=== PATIENT | female | born 1990 | race Caucasian/White ===

== ENCOUNTER 2016-10-24 20:40 | Emergency (ER) ==
[2016-10-24 20:53] VITALS: BP 124/78; TEMP 99.8; BMI 32.5
[2016-10-24 21:16] LABS: FLU INTERNAL QC INTERNAL QC VALID; RAPID FLU A NEGATIVE (NEGATIVE); RAPID FLU B NEGATIVE (NEGATIVE)
[2016-10-24] MEDS ORDERED: DUONEB NEB STA (21:30)
[2016-10-24] MEDS ORDERED: TORADOL IM STA (21:30)
--- NOTE | 2016-10-24 21:35 | ED.PDOC ---
General ED Provider: Dr. DM YARBROUGH Chief Complaint: Shortness of Air Stated Complaint: Patient complaints of one day history of Nasal drainage, cough , shortness of breath. Admits to smoking 1/2 ppd. Time Seen by Physician: 21:31 Mode of Arrival: Walk-In Information Source: Patient Primary Care Provider: ZENA MANCILLA Nursing and Triage Documentation Reviewed and Agree: Yes Review of Systems - Review Of Systems Constitutional: Reports: Fever Eyes: Reports: No symptoms Ears, Nose, Mouth, Throat: Reports: Nose discharge Respiratory: Reports: Cough, Short of air Cardiac: Reports: No symptoms GI: Reports: No symptoms : Reports: No symptoms Musculoskeletal: Reports: No symptoms Skin: Reports: No symptoms Neurological: Reports: No symptoms Endocrine: Reports: No symptoms Hematologic/Lymphatic: Reports: No symptoms All Other Systems: Reviewed and Negative Past Medical History - Past Medical History Endocrine: Reports: None Cardiovascular: Reports: None Respiratory: Reports: None Hematological: Reports: None Gastrointestinal: Reports: None Genitourinary: Reports: None Neuro/Psych: Reports: None Musculoskeletal: Reports: None Cancer: Reports: None Last Menstrual Period: 10/13/15 Other Pertinent Past Medical History: 2 C-SECTIONS, GALLBLADDER, TONSILS, ERCP - Surgical History General Surgical History: Reports: (x2), Cholecystectomy (ERCP), Tonsillectomy - Family History Family History: Reports: Unknown (no one else illl) - Social History Smoking Status: Current every day smoker, Light tobacco smoker Hx Substance Use: No Alcohol Screening: None - Immunizations Tetanus Shot up to Date: Yes Physical Exam - Physical Exam Appearance: Ill-appearing Ill-appearing: Moderate Pain Distress: Moderate Eyes: YVETTE, EOMI, Conjunctiva clear ENT: Ears normal, Nose normal, Oropharynx normal Neck: Supple Respiratory: Wheezes (mild scattared ) Cardiovascular: Tachycardia GI/: Soft Musculoskeletal: Normal strength Skin: Warm, Dry, Normal color Neurological: Sensation intact, Motor intact, Reflexes intact, Cranial nerves intact, Alert, Oriented Psychiatric: Affect appropriate Interpretation - Radiology Interpretation Radiology Interpretation By: ED Physician Radiology Results: Negative Exam Interpreted: CXR Re-Evaluation - Re-Evaluation Time of Re-Evaluation: 22:33 Status: Improved Vital Signs Stable: Yes Additional Comments: Breathing better. Critical Care Note - Critical Care Note Total Time (mins): 0 Course - Course Orders, Labs, Meds: Lab Review 10/24/16 20:55 Influenza A (Rapid) Negative Influenza B (Rapid) Negative Orders Category Date Time Status NEBULIZER TREATMENT Stat CARDIO 10/24/16 21:30 Completed MOLECULAR GROUP A STREP Stat LAB 10/24/16 20:55 Results RAPID FLU A/B Stat LAB 10/24/16 20:55 Completed RAPID STREP SCREEN [STREP SCREEN] Stat LAB 10/24/16 20:55 Results Ipratropium/Albuterol Neb [Duoneb] MEDS 10/24/16 21:30 Discontinued 1 vial NEB ONCE STA Ketorolac Tromethamine [Toradol] MEDS 10/24/16 21:30 Discontinued 60 mg IM ONCE STA CHEST, 2 VIEWS PA & LAT Stat RADS 10/24/16 22:23 Taken Medications Discontinued Medications Generic Name Dose Route Start Last Admin Trade Name Freq PRN Reason Stop Dose Admin Albuterol/Ipratropium 1 vial 10/24/16 21:30 10/24/16 22:14 Duoneb NEB 10/24/16 21:31 1 vial ONCE STA Administration Ketorolac Tromethamine 60 mg 10/24/16 21:30 10/24/16 21:57 Toradol IM 10/24/16 21:31 60 mg ONCE STA Administration Vital Signs: Temp Pulse Resp BP Pulse Ox 10/24/16 20:40 99.8 F H 106 H 22 124/78 98 Departure - Departure Time of Disposition: 22:33 Disposition: HOME SELF-CARE Discharge Problem: Viral URI with cough, Bronchitis Instructions: Viral Syndrome (ED), Acute Bronchitis (ED) Condition: Fair Pt referred to PMD for follow-up: Yes Additional Instructions: Push fludis Quit smoking Take medication as prescribed Prescriptions: Albuterol Sulfate [Proair Hfa] 2 puff IH Q6H PRN #1 puff PRN Reason: shortness of breath Azithromycin [Zithromax] 250 mg PO DIRECTED #6 tablet Methylprednisolone [Medrol Dosepak] 4 mg PO DIRECTED #1 pkg Allergies/Adverse Reactions: Allergies No Known Allergies Allergy (Verified 10/24/16 20:47) Home Medications: Ambulatory Orders Albuterol Sulfate [Proair Hfa] 2 puff IH Q6H PRN #1 puff 10/24/16 Azithromycin [Zithromax] 250 mg PO DIRECTED #6 tablet 10/24/16 Methylprednisolone [Medrol Dosepak] 4 mg PO DIRECTED #1 pkg 10/24/16 Disposition Discussed With: Patient
--- NOTE | 2016-10-25 07:34 | DI ---
EXAM: CHEST FRONTAL AND LATERAL VIEWS HISTORY: Cough. COMPARISON: 05/09/2016 FINDINGS: Heart size and mediastinal contour remain within normal limits. There is a discoid dens ity in the right lung base probably unchanged since prior study given differences in patient positio alexey. This may represent prominent pulmonary vessel possibly related to a pulmonary vascular malfor mation. Exact etiology and clinical significance is uncertain. No definite consolidated pneumonia. There is no vascular congestion, pneumothorax or pleural fluid. IMPRESSION: Discoid opacity in the right lung base as described. No consolidated pneumonia identifi ed.
== END 2016-10-24 22:45 | disposition home or self-care (01) ==
LOC: ED 20:40
DX: J20.9 Acute bronchitis, unspecified (principal); J06.9 Acute upper respiratory infection, unspecified; B34.9 Viral infection, unspecified; F17.210 Nicotine dependence, cigarettes, uncomplicated
CPT/HCPCS: 87651; 87804; 87880; 94640; 96372; 99283

== ENCOUNTER 2016-11-14 08:59 | Outpatient (CLI) ==
[2016-11-14 09:32] LABS: BASOPHILS % (AUTO) 0.2 % (0.0-3.0); EOSINOPHILS # (AUTO) 0.1 K/ul (0.0-0.7); EOSINOPHILS % (AUTO) 1.6 % (0.0-7.0); HEMATOCRIT 34.3 % (37.0-47.0); HEMOGLOBIN 11.9 g/dl (12.0-16.0); IMMATURE GRANULOCYTE % (AUTO) 0.1 % (0.0-5.0); LYMPHOCYTES # (AUTO) 2.3 K/uL (0.60-3.4); LYMPHOCYTES % (AUTO) 26.3 (10.0-50.0); MEAN CORPUSCULAR HGB CONC 34.7 (31.8-35.4); MEAN CORPUSCULAR VOLUME 89.3 fl (81.0-99.0); MONOCYTES # (AUTO) 0.4 K/uL (0.4-2.0); MONOCYTES % (AUTO) 4.7 (0-10); NEUTROPHILS # (AUTO) 5.8 K/ul (2.0-6.9); NEUTROPHILS % (AUTO) 67.1; PLATELET COUNT 213 10^3/uL (140-440); RED BLOOD COUNT 3.84 10^6/ul (4.20-5.40); WHITE BLOOD COUNT 8.67 K/ul (4.6-10.2)
[2016-11-14 10:08] LABS: ALBUMIN 3.3 g/dL (3.4-5.0); ALBUMIN/GLOBULIN RATIO 1.1; ANION GAP 10.8; BILIRUBIN,TOTAL 0.48 mg/dL (0.00-1.20); BUN/CREATININE RATIO 11.76; CALCIUM 8.8 mg/dL (8.2-10.2); CHOL/HDL RATIO 4.9 (4.5-5.5); CREATININE 0.68 mg/dL (0.60-1.30); POTASSIUM 3.8 mmol/L (3.5-5.10); TOTAL PROTEIN 6.3 g/dL (6.4-8.2)
== END 2016-11-14 09:00 | disposition home or self-care (01) ==
LOC: LAB 08:59
PROVIDERS: ATTEND Nurse Practitioner Family
DX: Z00.00 Encounter for general adult medical examination without abnormal findings (principal); Z72.0 Tobacco use
CPT/HCPCS: 36415; 80053; 80061; 84443; 85025

== ENCOUNTER 2016-11-14 09:42 | Emergency (ER) ==
[2016-11-14 09:54] VITALS: BP 107/71; TEMP 98.4; BMI 33.2
--- NOTE | 2016-11-14 10:51 | ED.PDOC ---
General ED Provider: Dr. EDDIE MCCALL Chief Complaint: Rash Stated Complaint: Rash; insect bites possible, incl bed bugs or fleas Time Seen by Physician: 10:35 Mode of Arrival: Walk-In Information Source: Patient Primary Care Provider: ZULMA [facility] Nursing and Triage Documentation Reviewed and Agree: Yes Review of Systems - Review Of Systems Constitutional: Reports: No symptoms Skin: Reports: Rash (multiple small garcia (bite garcia) on arms, R lower side) All Other Systems: Reviewed and Negative Past Medical History - Past Medical History Endocrine: Reports: None Cardiovascular: Reports: None Respiratory: Reports: None Hematological: Reports: None Gastrointestinal: Reports: None Genitourinary: Reports: None Neuro/Psych: Reports: None Musculoskeletal: Reports: None Cancer: Reports: None Last Menstrual Period: 10/13/16 Other Pertinent Past Medical History: 2 C-SECTIONS, GALLBLADDER, TONSILS, ERCP - Surgical History General Surgical History: Reports: (x2), Cholecystectomy (ERCP), Tonsillectomy - Family History Family History: Reports: Unknown (no one else illl) - Social History Smoking Status: Current every day smoker, Light tobacco smoker Hx Substance Use: No Alcohol Screening: None Physical Exam - Physical Exam Appearance: Well-appearing Skin: Warm, Dry, Normal color (Except for punctate lesions some with surrounding erythema 2 to 3 mm) Neurological: Sensation intact, Alert, Oriented Psychiatric: Affect appropriate, Mood appropriate Critical Care Note - Critical Care Note Total Time (mins): 10 Course - Course Vital Signs: Temp Pulse Resp BP Pulse Ox 11/14/16 09:51 98.4 F 79 20 107/71 96 Departure - Departure Time of Disposition: 10:51 Disposition: HOME SELF-CARE Discharge Problem: Rash and other nonspecific skin eruption Instructions: Acute Rash (ED) Condition: Good Pt referred to PMD for follow-up: Yes (Call for appointment) Additional Instructions: Followup with primary care; call for appointment. Prescriptions: Diphenhydramine HCl [Benadryl] 25 mg PO Q6H #30 capsule Prednisone 20 mg PO DAILYWM #14 tablet Allergies/Adverse Reactions: Allergies No Known Allergies Allergy (Verified 11/14/16 09:54) Home Medications: Ambulatory Orders Albuterol Sulfate [Proair Hfa] 2 puff IH Q6H PRN #1 puff 02/15/17 Diphenhydramine HCl [Benadryl] 25 mg PO Q6H #30 capsule 11/14/16 Prednisone 20 mg PO DAILYWM #14 tablet 11/14/16 Disposition Discussed With: Patient
== END 2016-11-14 11:17 | disposition home or self-care (01) ==
LOC: ED 09:42
DX: R21 Rash and other nonspecific skin eruption (principal); Z00.00 Encounter for general adult medical examination without abnormal findings; Z72.0 Tobacco use
CPT/HCPCS: 36415; 80053; 80061; 84443; 85025; 99282

== ENCOUNTER 2016-12-08 18:53 | Emergency (ER) ==
[2016-12-08 18:58] VITALS: BP 133/84; TEMP 101.8; BMI 33.5
[2016-12-08 19:21] LABS: BASOPHILS % (AUTO) 0.3 % (0.0-3.0); EOSINOPHILS % (AUTO) 0.6 % (0.0-7.0); HEMATOCRIT 35.5 % (37.0-47.0); HEMOGLOBIN 12.1 g/dl (12.0-16.0); IMMATURE GRANULOCYTE % (AUTO) 0.3 % (0.0-5.0); LYMPHOCYTES # (AUTO) 1.3 K/uL (0.60-3.4); LYMPHOCYTES % (AUTO) 18.7 (10.0-50.0); MEAN CORPUSCULAR HEMOGLOBIN 30.6 pg (27.0-31.0); MEAN CORPUSCULAR HGB CONC 34.1 (31.8-35.4); MEAN CORPUSCULAR VOLUME 89.6 fl (81.0-99.0); MONOCYTES # (AUTO) 0.3 K/uL (0.4-2.0); MONOCYTES % (AUTO) 4.6 (0-10); NEUTROPHILS # (AUTO) 5.3 K/ul (2.0-6.9); NEUTROPHILS % (AUTO) 75.5; PLATELET COUNT 202 10^3/uL (140-440); RED BLOOD COUNT 3.96 10^6/ul (4.20-5.40); WHITE BLOOD COUNT 6.95 K/ul (4.6-10.2)
[2016-12-08 19:37] LABS: FLU INTERNAL QC INTERNAL QC VALID; RAPID FLU A NEGATIVE (NEGATIVE); RAPID FLU B POSITIVE (NEGATIVE)
[2016-12-08 19:41] LABS: ALBUMIN 3.4 g/dL (3.4-5.0); ALBUMIN/GLOBULIN RATIO 1.03; ANION GAP 12.8; BILIRUBIN,TOTAL 0.23 mg/dL (0.00-1.20); BUN/CREATININE RATIO 8.57; CALCIUM 8.3 mg/dL (8.2-10.2); CREATININE 0.7 mg/dL (0.60-1.30); POTASSIUM 2.8 mmol/L (3.5-5.10); TOTAL PROTEIN 6.7 g/dL (6.4-8.2)
[2016-12-08] MEDS ORDERED: K-DUR PO STA (19:48)
[2016-12-08] MEDS ORDERED: MOTRIN SUSP PO STA (19:58)
[2016-12-08] MEDS ORDERED: AUGMENTIN 875-125 MG TAB PO STA (19:58)
[2016-12-08] MEDS ORDERED: TAMIFLU PO SCH (20:00)
[2016-12-08] MEDS ORDERED: TAMIFLU PO STA (20:02)
--- NOTE | 2016-12-08 20:02 | ED.PDOC ---
General ED Provider: Dr. STANLEY FLETCHER-ER Chief Complaint: Respiratory Complaint Stated Complaint: im coughing up stuff for 2 days Time Seen by Physician: 19:00 Mode of Arrival: Walk-In Information Source: Patient Exam Limitations: No limitations [facility] and T[facility] Documentation Reviewed and Agree: Yes Respiratory Complaint Exam - Respiratory Complaint/Exam Onset/Duration: 48hrs Symptoms Are: Still present Timing: Intermittent Initial Severity: Mild Current Severity: Moderate Location: Chest Character: Reports: Productive cough Aggravating: Reports: URI Alleviating: Reports: None Associated Signs and Symptoms: Reports: Fever, Chills, URI, Nasal congestion, Sore throat. Denies: Rapid breathing, Dyspnea, Chest pain, Pleuritic chest pain , Wheezing, Hemoptysis, Dizziness, Calf pain, Calf swelling, Edema, Hoarseness, Sinus discomfort, Vomiting, Weight loss, Decreased oral intake, Increased thirst , Increased appetite, Increased urination Related Surgical History: Reports: None Pulmonary Embolism Risk Factors: Smoking Cardiac Risk Factors: Reports: Smoking Tuberculosis Risk Factors: Reports: None Status Asthmaticus Risk Factors: Reports: None Home Oxygen Use: No Recent Stress Test: No Recent Echo/LV Function: No Current Antibiotic Use: No Current Asthma Medication Use: No Respiratory Distress: None Inadequate Respiratory Effort: No Dysphagia Present: No JVD Present: No Retractions: Not Present Diminished Breath Sounds: No Sinus Tenderness: None Grunting Respirations: No Kussmaul Respirations: No Differential Diagnoses: Pneumonia, Sinusitis, Influenza Review of Systems - Review Of Systems Constitutional: Reports: Chills, Fever Eyes: Reports: No symptoms Ears, Nose, Mouth, Throat: Reports: Nose discharge Respiratory: Reports: Cough Cardiac: Reports: No symptoms GI: Reports: No symptoms : Reports: No symptoms Musculoskeletal: Reports: No symptoms Skin: Reports: No symptoms Neurological: Reports: No symptoms Endocrine: Reports: No symptoms Hematologic/Lymphatic: Reports: No symptoms All Other Systems: Reviewed and Negative Past Medical History - Past Medical History Endocrine: Reports: None Cardiovascular: Reports: None Respiratory: Reports: None Hematological: Reports: None Gastrointestinal: Reports: None Genitourinary: Reports: None Neuro/Psych: Reports: None Musculoskeletal: Reports: None Cancer: Reports: None Last Menstrual Period: november 18 Other Pertinent Past Medical History: 2 C-SECTIONS, GALLBLADDER, TONSILS, ERCP - Surgical History General Surgical History: Reports: (x2), Cholecystectomy (ERCP), Tonsillectomy - Family History Family History: Reports: Unknown (no one else illl) - Social History Smoking Status: Current every day smoker, Light tobacco smoker Hx Substance Use: No Alcohol Screening: None Lives: With family Physical Exam - Physical Exam Appearance: Well-appearing, No pain distress, Well-nourished Eyes: YVETTE, EOMI, Conjunctiva clear ENT: Rhinorrhea Neck: Supple Respiratory: Rhonchi Cardiovascular: RRR, Pulses normal, No rub, No murmur GI/: Soft Musculoskeletal: Normal strength, ROM intact, No edema, No calf tenderness Skin: Warm, Dry, Normal color Neurological: Sensation intact, Motor intact, Reflexes intact, Cranial nerves intact, Alert, Oriented Psychiatric: Affect appropriate, Mood appropriate Interpretation - Radiology Interpretation Radiology Interpretation By: Radiologist Radiology Results: Negative Exam Interpreted: CXR Critical Care Note - Critical Care Note Total Time (mins): 0 Course - Course Hematology/Chemistry: 12/08/16 19:15 12/08/16 19:15 Orders, Labs, Meds: Lab Review 12/08/16 12/08/16 19:03 19:15 WBC 6.95 RBC 3.96 L Hgb 12.1 Hct 35.5 L MCV 89.6 MCH 30.6 MCHC 34.1 RDW Coeff of Khushboo 12.5 Plt Count 202 Immature Gran % (Auto) 0.3 Neut % (Auto) 75.5 Lymph % (Auto) 18.7 [place] % (Auto) 4.6 Eos % (Auto) 0.6 Baso % (Auto) 0.3 Immature Gran # (Auto) 0.0 Neut # 5.3 Lymph # 1.3 [place] # 0.3 L Eos # 0.0 Baso # 0.0 Sodium 140 Potassium 2.8 L Chloride 107 Carbon Dioxide 23 Anion Gap 12.8 BUN 6 L Creatinine 0.70 Estimated GFR (MDRD) 100.00 BUN/Creatinine Ratio 8.57 Glucose 112 H Lactic Acid 13.4 Calcium 8.3 Total Bilirubin 0.23 AST 26 ALT 33 Alkaline Phosphatase 95 Total Protein 6.7 Albumin 3.4 Globulin 3.3 Albumin/Globulin Ratio 1.03 Procalcitonin < 0.05 Influenza A (Rapid) Negative Influenza B (Rapid) Positive H Orders Category Date Time Status BLOOD CULTURE Stat LAB 12/08/16 19:15 Received CBC W/ AUTO DIFF Stat LAB 12/08/16 19:15 Completed COMPREHENSIVE METABOLIC PANEL Stat LAB 12/08/16 19:15 Completed LACTIC ACID Stat LAB 12/08/16 19:15 Completed MOLECULAR GROUP A STREP Stat LAB 12/08/16 19:03 Results PROCALCITONIN Stat LAB 12/08/16 19:15 Completed RAPID FLU A/B Stat LAB 12/08/16 19:03 Completed STREP SCREEN Stat LAB 12/08/16 19:03 Results Amoxicillin/Potassium Clav [Augmentin 875-125 mg Tab] MEDS 12/08/16 19:58 Discontinued 1 tab PO ONCE STA Ibuprofen Susp [Motrin Susp] MEDS 12/08/16 19:58 Discontinued 800 mg PO ONCE STA Oseltamivir Phosphate [Tamiflu] MEDS 12/08/16 20:00 Discontinued 75 mg PO ONCE Oseltamivir Phosphate [Tamiflu] MEDS 12/08/16 20:02 Stat 75 mg PO ONCE STA Potassium Chloride [K-Dur] MEDS 12/08/16 19:48 Discontinued 40 meq PO ONCE STA CXR [CHEST, 2 VIEWS PA & LAT] Stat RADS 12/08/16 19:04 Taken Medications Discontinued Medications Generic Name Dose Route Start Last Admin Trade Name Freq PRN Reason Stop Dose Admin Amoxicillin/Clavulanate Potassium 1 tab 12/08/16 19:58 Augmentin 875-125 Mg Tab PO 12/08/16 19:59 ONCE STA Ibuprofen 800 mg 12/08/16 19:58 Motrin Susp PO 12/08/16 19:59 ONCE STA Oseltamivir Phosphate 75 mg 12/08/16 20:00 Tamiflu PO ONCE HANH Oseltamivir Phosphate 75 mg 12/08/16 20:02 Tamiflu PO 12/08/16 20:03 ONCE STA Potassium Chloride 40 meq 12/08/16 19:48 12/08/16 19:53 K-Dur PO 12/08/16 19:49 40 meq ONCE STA Administration Vital Signs: Temp Pulse Resp BP Pulse Ox 12/08/16 19:56 101.8 F H 12/08/16 18:53 101.8 F H 103 H 20 133/84 96 Departure - Departure Time of Disposition: 20:05 Disposition: HOME SELF-CARE Discharge Problem: Influenza B Instructions: Influenza (ED) Condition: Good Pt referred to PMD for follow-up: Yes Additional Instructions: tamiflu 75mg bid x5 days--augmentin 875mg bid x 7days...fluids..rest..motrin for temp..recheck in 48hrs if not better--rcheck potassium with your pcp next week Allergies/Adverse Reactions: Allergies No Known Allergies Allergy (Verified 12/08/16 19:00) Home Medications: Ambulatory Orders 1 [No Reported Medications] 12/08/16 Disposition Discussed With: Patient
--- NOTE | 2016-12-08 21:18 | DI ---
EXAM: Two-view chest. HISTORY: Cough and fever. COMPARISON: None. FINDINGS: AP and lateral views of the chest. The lungs are clear without consolidation or effusion . The heart size and pulmonary vasculature is normal. There is no pneumothorax. The osseous struc tures are normal for age. The aorta is unremarkable. IMPRESSION: No acute pulmonary disease.
== END 2016-12-08 20:40 | disposition home or self-care (01) ==
LOC: ED 18:53
DX: J10.1 Influenza due to other identified influenza virus with other respiratory manifestations (principal); F17.210 Nicotine dependence, cigarettes, uncomplicated
CPT/HCPCS: 36415; 80053; 83605; 84145; 85025; 87040; 87651; 87804; 87880; 99284

== ENCOUNTER 2017-03-27 16:32 | Outpatient (CLI) ==
--- NOTE | 2017-03-28 08:08 | DI ---
EXAM: Five views of the lumbar spine. History: Lower back pain. Findings: No acute fracture or subluxation. Disc space heights are preserved. Cholecystectomy cli ps. Scattered colonic stool. Impression: Unremarkable exam.
== END 2017-03-27 16:33 | disposition home or self-care (01) ==
LOC: RAD 16:32
PROVIDERS: ATTEND Nurse Practitioner Family
DX: M53.3 Sacrococcygeal disorders, not elsewhere classified (principal)

== ENCOUNTER 2017-05-14 21:55 | Emergency (ER) ==
[2017-05-14 22:04] VITALS: BP 121/78; TEMP 99.2; BMI 33.8
[2017-05-14] MEDS ORDERED: PREDNISONE PO STA (22:21)
[2017-05-14] MEDS ORDERED: CLARITIN PO STA (22:21)
--- NOTE | 2017-05-14 22:21 | ED.PDOC ---
General ED Provider: Dr. DM YARBROUGH Chief Complaint: Sore Throat Stated Complaint: pateint is a 27 year old female who comes to the ER with complains of headache, chills, sore throat, running nose body ache and non productive cough. Time Seen by Physician: 22:19 Mode of Arrival: Walk-In Information Source: Patient Exam Limitations: No limitations [facility] T[facility] Documentation Reviewed and Agree: Yes EENT Complaint Exam - Throat Complaint/Exam Onset/Duration: 1 day Symptoms Are: Still present Timimg: Constant Associated Signs and Symptoms: Reports: Dysphagia, Cough Related History: Reports: Similar Episode Uvula Midline: No Marlyn-tonsillar Fluctuence: No Scarlatinaform Rash Present: No Stridor Present: No Sinus Tenderness Present: No Tonsillar Hypertrophy Present: No Tonsillar Exudate Present: No Marlyn-tonsillar Swelling Present: No Adenopathy Present: No Splenomegaly Present: No Review of Systems - Review Of Systems Constitutional: Reports: Fever Eyes: Reports: No symptoms Ears, Nose, Mouth, Throat: Reports: Nose discharge, Throat pain Respiratory: Reports: Cough Cardiac: Reports: No symptoms GI: Reports: No symptoms : Reports: No symptoms Musculoskeletal: Reports: No symptoms Skin: Reports: No symptoms Neurological: Reports: Anxiety Endocrine: Reports: No symptoms Hematologic/Lymphatic: Reports: No symptoms All Other Systems: Reviewed and Negative Past Medical History - Past Medical History Endocrine: Reports: None Cardiovascular: Reports: None Respiratory: Reports: None Hematological: Reports: None Gastrointestinal: Reports: None Genitourinary: Reports: None Neuro/Psych: Reports: None Musculoskeletal: Reports: None Cancer: Reports: None Last Menstrual Period: 04/19-04/23 Other Pertinent Past Medical History: 2 C-SECTIONS, GALLBLADDER, TONSILS, ERCP - Surgical History General Surgical History: Reports: (x2), Cholecystectomy (ERCP), Tonsillectomy - Family History Family History: Reports: Unknown (no one else illl) - Social History Smoking Status: Current every day smoker, Heavy tobacco smoker Hx Substance Use: No Alcohol Screening: None - Immunizations Tetanus Shot up to Date: Yes Physical Exam - Physical Exam Appearance: Ill-appearing, Well-nourished, Obese Ill-appearing: Moderate Pain Distress: Mild Eyes: YVETTE, EOMI, Conjunctiva clear ENT: Ears normal, Nose normal, Oropharynx normal Neck: Supple Respiratory: Airway patent, Breath sounds diminished, Respirations nonlabored Cardiovascular: RRR, Pulses normal, No rub, No murmur GI/: Soft, Nontender, No masses, Bowel sounds normal, No Organomegaly Musculoskeletal: Normal strength, ROM intact, No edema, No calf tenderness Skin: Warm, Dry, Normal color Neurological: Sensation intact, Motor intact, Reflexes intact, Cranial nerves intact, Alert, Oriented Psychiatric: Affect appropriate, Mood appropriate Critical Care Note - Critical Care Note Total Time (mins): 0 Course - Course Orders, Labs, Meds: Orders Category Date Time Status STREP SCREEN Stat LAB 05/14/17 22:10 Received Vital Signs: Temp Pulse Resp BP Pulse Ox 05/14/17 21:55 99.2 F 88 20 121/78 95 Departure - Departure Time of Disposition: 22:25 Disposition: HOME SELF-CARE Discharge Problem: Sore throat symptom, Allergic rhinitis, Viral URI with cough Instructions: Allergic Rhinitis (ED), Pharyngitis (ED) Condition: Fair Pt referred to PMD for follow-up: Yes Additional Instructions: Push fluids Follow up with PCP in 3 days take medications as prescribed Start taking Your home prednisone 10 mg daily for 3 days Start Taking Zithromax if symptoms not better in 3 days or we call you with a positive strep. Prescriptions: Azithromycin [Zithromax] 250 mg PO DIRECTED #6 tablet Allergies/Adverse Reactions: Allergies No Known Allergies Allergy (Verified 05/14/17 22:03) Home Medications: Ambulatory Orders Montelukast Sodium [Singulair] 10 mg PO DAILY PRN 03/27/17 Naproxen [Naprosyn] 500 mg PO PRN PRN 03/27/17 Azithromycin [Zithromax] 250 mg PO DIRECTED #6 tablet 05/14/17 Ibuprofen 400 mg PO Q4H PRN 05/14/17
== END 2017-05-14 22:37 | disposition home or self-care (01) ==
LOC: ED 21:55
DX: J02.9 Acute pharyngitis, unspecified (principal); J06.9 Acute upper respiratory infection, unspecified; J30.9 Allergic rhinitis, unspecified; R05 Cough; F17.210 Nicotine dependence, cigarettes, uncomplicated
CPT/HCPCS: 87651; 87880; 99283

== ENCOUNTER 2017-08-06 13:43 | Outpatient (CLI) ==
[2017-08-06 13:52] LABS: FLU INTERNAL QC INTERNAL QC VALID; RAPID FLU A NEGATIVE (NEGATIVE); RAPID FLU B NEGATIVE (NEGATIVE)
== END 2017-08-06 13:44 | disposition home or self-care (01) ==
LOC: LAB 13:43
PROVIDERS: ATTEND Nurse Practitioner Family
DX: R05 Cough (principal)
CPT/HCPCS: 87651; 87804; 87880

== ENCOUNTER 2017-08-30 16:24 | Outpatient (CLI) ==
[2017-08-30 16:30] LABS: FLU INTERNAL QC INTERNAL QC VALID; MOLECULAR FLU A NEGATIVE (NEGATIVE); MOLECULAR FLU B NEGATIVE (NEGATIVE)
== END 2017-08-30 16:25 | disposition home or self-care (01) ==
LOC: LAB 16:24
PROVIDERS: ATTEND Nurse Practitioner Family
DX: J02.9 Acute pharyngitis, unspecified (principal); R68.89 Other general symptoms and signs
CPT/HCPCS: 87502; 87651; 87880

== ENCOUNTER 2017-09-30 20:02 | Emergency (ER) ==
[2017-09-30 20:09] VITALS: BP 155/90; TEMP 98.8; BMI 36.6
[2017-09-30] MEDS ORDERED: ROBITUSSIN AC SYRUP PO STA (20:40)
[2017-09-30] MEDS ORDERED: DECADRON 4 MG/ML SDV IM STA (20:40)
--- NOTE | 2017-09-30 20:44 | ED.PDOC ---
General ED Provider: Dr. ZULMA WHITTAKER Chief Complaint: Cough Stated Complaint: Coughing, congestion, hurting to breath. taking Amoxicillin for the sinus Infection. Time Seen by Physician: 20:42 Mode of Arrival: Walk-In Information Source: Patient Primary Care Provider: ZULMA WHITTAKER-[facility] Nursing and Triage Documentation Reviewed and Agree: Yes Reviewed sepsis parameters & appropriate labs ordered?: No System Inflammatory Response Syndrome: Not Applicable Sepsis Protocol: For patient's 13 years and over: Temp is 96.8 and below OR 101 and greater Pulse >90 BPM Resp >20/minute Acutely Altered Mental Status Are patient's symptoms suggestive of a new infection, such as: -Pneumonia -Skin, Soft Tissue -Endocarditis -UTI -Bone, Joint Infection -Implantable Device -Acute Abdominal Infection -Wound Infection -Meningitis -Blood Stream Catheter Infection -Unknown Respiratory Complaint Exam - Respiratory Complaint/Exam Symptoms Are: Still present Timing: Constant Initial Severity: Mild Current Severity: Mild Location: Nose, Chest Character: Reports: Productive cough Aggravating: Reports: URI Alleviating: Reports: None Associated Signs and Symptoms: Reports: URI, Nasal congestion, Hoarseness. Denies: Rapid breathing, Dyspnea, Fever, Chills, Chest pain, Pleuritic chest pain, Wheezing, Hemoptysis, Dizziness, Calf pain, Calf swelling, Edema, Sinus discomfort, Vomiting, Sore throat, Weight loss, Decreased oral intake, Increased thirst, Increased appetite, Increased urination Related History: Reports: Similar episode History of Healthcare-Acquired Pneumonia: No Related Surgical History: Reports: None Pulmonary Embolism Risk Factors: None Cardiac Risk Factors: Reports: None Pseudomonas Risk Factors: Reports: None Tuberculosis Risk Factors: Reports: None Status Asthmaticus Risk Factors: Reports: None Home Oxygen Use: No Recent Stress Test: No Recent Echo/LV Function: No Current Antibiotic Use: No Current Asthma Medication Use: No Respiratory Distress: Mild Inadequate Respiratory Effort: No Dysphagia Present: No Stridor Present: No JVD Present: No Accessory Muscle Use: No Retractions: Not Present Diminished Breath Sounds: No Prolonged Respiration: Inspiratory phase Sinus Tenderness: Frontal, Maxillary Grunting Respirations: No Kussmaul Respirations: No Differential Diagnoses: Pneumonia, Bronchitis Review of Systems - Review Of Systems Constitutional: Reports: No symptoms Eyes: Reports: No symptoms Ears, Nose, Mouth, Throat: Reports: Nose discharge Respiratory: Reports: Cough Cardiac: Reports: No symptoms GI: Reports: No symptoms : Reports: No symptoms Musculoskeletal: Reports: No symptoms Skin: Reports: No symptoms Neurological: Reports: No symptoms Endocrine: Reports: No symptoms Hematologic/Lymphatic: Reports: No symptoms All Other Systems: Reviewed and Negative Past Medical History - Past Medical History Previously Healthy: Yes Endocrine: Reports: None Cardiovascular: Reports: None Respiratory: Reports: None Hematological: Reports: None Gastrointestinal: Reports: None Genitourinary: Reports: None Neuro/Psych: Reports: None Musculoskeletal: Reports: None Cancer: Reports: None Last Menstrual Period: 09/21 Other Pertinent Past Medical History: 2 C-SECTIONS, GALLBLADDER, TONSILS, ERCP - Surgical History General Surgical History: Reports: (x2), Cholecystectomy (ERCP), Tonsillectomy - Family History Family History: Reports: Unknown (no one else illl) - Social History Smoking Status: Current some day smoker Hx Substance Use: No Alcohol Screening: None - Immunizations Tetanus Shot up to Date: Yes Physical Exam - Physical Exam Appearance: Well-appearing, No pain distress, Well-nourished Eyes: YVETTE, EOMI, Conjunctiva clear ENT: Ears normal, Nose normal, Oropharynx normal Respiratory: Airway patent, Breath sounds clear, Breath sounds equal, Respirations nonlabored Cardiovascular: RRR, Pulses normal, No rub, No murmur GI/: Soft, Nontender, No masses, Bowel sounds normal, No Organomegaly Musculoskeletal: Normal strength, ROM intact, No edema, No calf tenderness Skin: Warm, Dry, Normal color Neurological: Sensation intact, Motor intact, Reflexes intact, Cranial nerves intact, Alert, Oriented Psychiatric: Affect appropriate, Mood appropriate Critical Care Note - Critical Care Note Total Time (mins): 15 Course - Course Orders, Labs, Meds: Orders Category Date Time Status Dexamethasone 4 mg/ml Inj [Decadron 4 mg/ml Sdv] MEDS 09/30/17 20:40 Stat 4 mg IM ONCE STA Guaifenesin/Codeine Phosphate [Robitussin AC Syrup] MEDS 09/30/17 20:40 Stat 5 ml PO ONCE STA CHEST, 2 VIEWS PA & LAT Stat RADS 09/30/17 20:40 Ordered Medications Generic Name Dose Route Start Last Admin Trade Name Freq PRN Reason Stop Dose Admin Dexamethasone Sodium Phosphate 4 mg 09/30/17 20:40 Decadron 4 Mg/Ml Sdv IM 09/30/17 20:41 ONCE STA Guaifenesin/Codeine Phosphate 5 ml 09/30/17 20:40 Robitussin Ac Syrup PO 09/30/17 20:41 ONCE STA Vital Signs: Temp Pulse Resp BP Pulse Ox 09/30/17 20:03 98.8 F 93 H 16 155/90 H 94 L Departure - Departure Time of Disposition: 20:45 Disposition: HOME SELF-CARE Discharge Problem: URTI (acute upper respiratory infection), Pleurisy Instructions: Upper Respiratory Infection (ED) Condition: Stable Pt referred to PMD for follow-up: No IPMP verified?: No Additional Instructions: Take medication with food. Keep checking the BP F/u with [facility] if not better. Prescriptions: Guaifenesin/Dextromethorphan [Robitussin Cough-Chest Dm Liq] 10 ml PO TID #1 bottle Prednisone 10 mg PO BIDWM #14 tablet Allergies/Adverse Reactions: Allergies No Known Allergies Allergy (Verified 09/30/17 20:26) Home Medications: Ambulatory Orders Naproxen [Naprosyn] 500 mg PO PRN PRN 03/27/17 Ibuprofen 400 mg PO Q4H PRN 05/14/17 Tizanidine HCl 4 mg PO DAILY 09/26/17 Guaifenesin/Dextromethorphan [Robitussin Cough-Chest Dm Liq] 10 ml PO TID #1 bottle 09/30/17 Prednisone 10 mg PO BIDWM #14 tablet 09/30/17 Disposition Discussed With: Patient
--- NOTE | 2017-10-01 07:26 | DI ---
EXAM: PA and lateral views of the chest HISTORY: Cough. COMPARISON: Chest x-ray 12/08/2016 and multiple priors FINDINGS: The cardiomediastinal silhouette is normal. There is no pneumothorax or pleural effusion. There is no consolidation, nodule or mass. The osseous structures are unremarkable. IMPRESSION: No acute cardiopulmonary process
== END 2017-09-30 21:30 | disposition home or self-care (01) ==
LOC: ED 20:02
DX: J06.9 Acute upper respiratory infection, unspecified (principal); R09.1 Pleurisy; F17.210 Nicotine dependence, cigarettes, uncomplicated
CPT/HCPCS: 96372; 99282

== ENCOUNTER 2017-10-21 12:45 | Outpatient (CLI) | END 2017-10-21 12:46 | disposition home or self-care (01) | LOC: LAB 12:45 | PROVIDERS: ATTEND Nurse Practitioner Family | DX: J02.9 Acute pharyngitis, unspecified (principal); R51 Headache | CPT/HCPCS: 87502; 87651 ==

== ENCOUNTER 2017-12-26 19:56 | Emergency (ER) ==
[2017-12-26 20:01] VITALS: BP 126/85; TEMP 98.5; BMI 36.8
--- NOTE | 2017-12-26 21:54 | CT ---
EXAM: CT of the head without contrast. HISTORY: Fall. COMPARISON: None available. TECHNIQUE: Noncontrast CT of the head. FINDINGS: Streak artifacts mildly limit evaluation. No intracranial hemorrhage or mass effect is identified. T he sulci and ventricles are normal in size and configuration. The calvarium is intact. The visualized paranasal sinuses are unopacified. IMPRESSION: No evidence of an acute intracranial process.
--- NOTE | 2017-12-26 21:56 | CT ---
EXAM: CT of the lumbar spine without contrast History: Lower back trauma. Technique: Multiplanar CT images through the lumbar spine were obtained without the administration o f IV contrast Findings: No acute fracture or subluxation of the lumbar spine. Mild to moderate degenerative disc disease at L5-S1. Bony spinal canal is not compromised. Moderate left-sided bony neural foraminal na rrowing at L5-S1 secondary to ligamentous and facet hypertrophy. Impression: No acute osseous abnormality of the lumbar spine
--- NOTE | 2017-12-26 21:56 | CT ---
EXAM: Noncontrast CT of the cervical spine HISTORY: Fall COMPARISON: None available. TECHNIQUE: Noncontrast CT of the cervical spine FINDINGS: The cervical vertebral bodies are normal in height. No cervical spine fractures are seen. There is mild reversal of the normal cervical lordosis. There is 1 mm of anterolisthesis at C4-5. No signifi cant intervertebral disc height loss is seen. No abnormal prevertebral soft tissue swelling is seen. IMPRESSION: No evidence of acute osseous injury to the cervical spine. Mild reversal of the normal cervical lordosis.
--- NOTE | 2017-12-26 21:57 | DI ---
EXAM: Three views of the left shoulder. History: Left shoulder trauma. Findings: No acute fracture or dislocation. No abnormal calcifications or radiopaque foreign bodies . Joint spaces are preserved. Impression: No acute osseous abnormality
--- NOTE | 2017-12-26 21:58 | CT ---
EXAM: Noncontrast CT of the pelvis HISTORY: Fall COMPARISON: None available. TECHNIQUE: Noncontrast CT of the pelvis FINDINGS: No fracture or dislocation is identified. There is no significant joint space loss of the hips. The small fat-containing umbilical hernia and small fat-containing periumbilical hernia. No free pelvic fluid is seen. IMPRESSION: No acute osseous abnormality.
--- NOTE | 2017-12-26 23:00 | ED.PDOC ---
General ED Provider: Dr. STANLEY FLETCHER-ER Chief Complaint: Fall Stated Complaint: i fell in the shower last night Time Seen by Physician: 22:58 Mode of Arrival: Walk-In Information Source: Patient Exam Limitations: No limitations [facility] T[facility] Documentation Reviewed and Agree: Yes Reviewed sepsis parameters & appropriate labs ordered?: Yes System Inflammatory Response Syndrome: Not Applicable Sepsis Protocol: For patient's 13 years and over: Temp is 96.8 and below OR 101 and greater Pulse >90 BPM Resp >20/minute Acutely Altered Mental Status Are patient's symptoms suggestive of a new infection, such as: -Pneumonia -Skin, Soft Tissue -Endocarditis -UTI -Bone, Joint Infection -Implantable Device -Acute Abdominal Infection -Wound Infection -Meningitis -Blood Stream Catheter Infection -Unknown Musculoskeletal Complaint Exam - Back Pain Complaint/Exam Mechanism of Injury: Reports: Trauma Onset/Duration: 24 hrs Symptoms Are: Still present Timing: Constant Initial Severity: Mild Current Severity: Mild Character: Reports: Dull, Aching Aggravating: Reports: Movements, Lifting, Walking Alleviating: Reports: None Associated Signs and Symptoms: Denies: Swelling, Redness, Bruising, Fever, Weakness, Numbness, Tingling, Abdominal pain, Flank pain, Bladder incontinence, Bowel incontinence, Weight loss, Pain with weight bearing Focal Tenderness: Yes Paraspinal Muscle Tenderness: Yes Paraspinal Muscle Spasm: No Scoliosis: No Lordosis: No Kyphosis: No SLR Test: Right Negative, Left Negative Hip Motion Testing Pain: Right Negative, Left Negative Focal Weakness: Present: None Focal Sensory Loss: Present: None Gait: Present: Normal Differential Diagnoses: Strain, Sprain Review of Systems - Review Of Systems Constitutional: Reports: No symptoms Eyes: Reports: No symptoms Ears, Nose, Mouth, Throat: Reports: No symptoms Respiratory: Reports: No symptoms Cardiac: Reports: No symptoms GI: Reports: No symptoms : Reports: No symptoms Musculoskeletal: Reports: Back pain, Muscle pain Skin: Reports: No symptoms Neurological: Reports: No symptoms Endocrine: Reports: No symptoms Hematologic/Lymphatic: Reports: No symptoms All Other Systems: Reviewed and Negative Past Medical History - Past Medical History Previously Healthy: Yes Endocrine: Reports: None Cardiovascular: Reports: None Respiratory: Reports: None Hematological: Reports: None Gastrointestinal: Reports: None Genitourinary: Reports: None Neuro/Psych: Reports: None Musculoskeletal: Reports: None Cancer: Reports: None Last Menstrual Period: 3 WEEKS Other Pertinent Past Medical History: 2 C-SECTIONS, GALLBLADDER, TONSILS, ERCP - Surgical History General Surgical History: Reports: (x2), Cholecystectomy (ERCP), Tonsillectomy - Family History Family History: Reports: Unknown (no one else illl) - Social History Smoking Status: Current some day smoker Hx Substance Use: No Alcohol Screening: None - Immunizations Tetanus Shot up to Date: Yes Physical Exam - Physical Exam Appearance: Well-appearing, No pain distress, Well-nourished Pain Distress: Mild Eyes: YVETTE, EOMI, Conjunctiva clear ENT: Ears normal Neck: Supple Respiratory: Airway patent, Breath sounds clear, Breath sounds equal, Respirations nonlabored Cardiovascular: RRR, Pulses normal, No rub, No murmur GI/: Soft, Nontender, No masses, Bowel sounds normal, No Organomegaly Musculoskeletal: Normal strength, ROM intact, No edema, No calf tenderness Skin: Warm, Dry, Normal color Neurological: Sensation intact, Motor intact, Reflexes intact, Cranial nerves intact, Alert, Oriented Psychiatric: Affect appropriate, Mood appropriate Interpretation - Radiology Interpretation Radiology Interpretation By: Radiologist Radiology Results: Negative Exam Interpreted: CT Scan Critical Care Note - Critical Care Note Total Time (mins): 0 Course - Course Orders, Labs, Meds: Orders Category Date Time Status CT CERVICAL SPINE W/O CONTRAST Stat RADS 12/26/17 20:[address] HEAD W/O CONTRAST Stat RADS 12/26/17 20:[address] LUMBAR SPINE W/O CONTRAST Stat RADS 12/26/17 20:[address] PELVIS W/O CONTRAST Stat RADS 12/26/17 20:22 Completed SHOULDER, LEFT MIN 2V Stat RADS 12/26/17 20:23 Completed Vital Signs: Temp Pulse Resp BP Pulse Ox 12/26/17 19:56 98.5 F 92 H 16 126/85 97 Departure - Departure Time of Disposition: 23:00 Disposition: HOME SELF-CARE Discharge Problem: Contusion Qualifiers: Encounter type: initial encounter Contusion area: lower back Qualified Code(s) : S30.0XXA - Contusion of lower back and pelvis, initial encounter Instructions: Contusion in Adults (ED) Condition: Good Pt referred to PMD for follow-up: Yes IPMP verified?: No Additional Instructions: norco 5mg q 4hrs prn pain #12---f/u with pcp this week Allergies/Adverse Reactions: Allergies No Known Allergies Allergy (Verified 12/26/17 20:00) Home Medications: Ambulatory Orders Tizanidine HCl 4 mg PO DAILY 09/26/17 Disposition Discussed With: Patient, Family
[2017-12-26] MEDS ORDERED: NORCO 7.5-325 PO STA (23:03)
== END 2017-12-26 23:09 | disposition home or self-care (01) ==
LOC: ED 19:56
DX: S30.0XXA Contusion of lower back and pelvis, initial encounter (principal); W18.2XXA Fall in (into) shower or empty bathtub, initial encounter; F17.210 Nicotine dependence, cigarettes, uncomplicated
CPT/HCPCS: 99283

== ENCOUNTER 2017-12-31 15:04 | Outpatient (CLI) ==
--- NOTE | 2017-12-31 16:08 | DI ---
EXAM: LEFT HAND THREE VIEWS HISTORY: Hand pain FINDINGS: Bone and joint structures appear normal. There is no fracture, joint dislocation, bone density abnormality or soft tissue finding. IMPRESSION: Within normal limits.
== END 2017-12-31 15:05 | disposition home or self-care (01) ==
LOC: RAD 15:04
PROVIDERS: ATTEND Nurse Practitioner Family
DX: M79.642 Pain in left hand (principal)

== ENCOUNTER 2018-01-24 12:14 | Outpatient (CLI) | END 2018-01-24 12:15 | disposition home or self-care (01) | LOC: RHC-LAB 12:14 | PROVIDERS: ATTEND Emergency Medicine | DX: Z00.00 Encounter for general adult medical examination without abnormal findings (principal) | CPT/HCPCS: 36415; 86765; 86787 ==

== ENCOUNTER 2019-02-17 07:49 | Outpatient (CLI) ==
--- NOTE | 2019-02-17 09:32 | CT ---
EXAM: CT of the left hand without contrast History: No hand pain and swelling, mass, distal third anterior metacarpal, wrist pain. Comparison: Radiograph of the left hand 12/31/2017 Technique: Multiplanar CT images through the left hand were obtained without the administration of I V contrast Findings: No acute fracture or dislocation. 0.8 cm cystic lesion adjacent to the tendinous structur es of the second MCP joint, ulnar side. 1.5 cm cystic lesion adjacent to the tendinous structures al rafia the ventral aspect of the wrist radial side. Joint spaces are relatively preserved. No erosive osseous changes. No radiopaque foreign bodies. Impression: 1. No acute osseous abnormality. 2. Cystic lesions as described above. The main differential diagnosis would include synovial or osvaldo glion cysts. An MRI with and without contrast can be obtained for further evaluation if deemed clini deep necessary.
== END 2019-02-17 07:50 | disposition home or self-care (01) ==
LOC: RAD 07:49
PROVIDERS: ATTEND Nurse Practitioner Family
DX: R22.32 Localized swelling, mass and lump, left upper limb (principal); M79.642 Pain in left hand
CPT/HCPCS: 36415; 82565